=== PATIENT | female | born 1940 | race Caucasian/White ===

== ENCOUNTER 2023-03-24 12:46 | Day surgery (SDC) | payer MEDICARE ==
[2023-03-24] MEDS ORDERED: Depo-Medrol 40 MG/ML IM ONE (12:47)
[2023-03-24] MEDS ORDERED: BUPIVACAINE 0.5% VIAL IJ ONE (12:47)
[2023-03-24] MEDS ORDERED: Lactated Ringers 1,000 ML IV ONE ×2 (14:43→16:01)
[2023-03-24] MEDS ORDERED: DIPRIVAN 200 MG/20 ML IV ONE (15:04)
--- NOTE | 2023-03-24 16:33 | XRAY ---
14 seconds of fluoroscopy was used in surgery for a bilateral sacroiliac joint injection.
--- NOTE | 2023-03-24 16:37 | XRAY ---
Indication: Bilateral SI joint injection. Intraoperative fluoroscopy provided for 14 seconds. 4 digital spot image submitted for interpretation demonstrates posterior needle tip projecting over the expected left and right SI joint. Correlate with intraoperative findings/report.
== END 2023-03-24 15:30 | disposition home or self-care (01) ==
LOC: SDC-PAIN 12:46
PROVIDERS: ATTEND Psychiatry & Neurology Pain Medicine
DX: M46.1 Sacroiliitis, not elsewhere classified (principal); Z79.899 Other long term (current) drug therapy
CPT/HCPCS: 01992; 27096; 72202; 77002; 99100; G0260; J1030; J2704

== ENCOUNTER 2023-05-19 07:55 | Day surgery (SDC) | payer MEDICARE ==
[2023-05-19] MEDS ORDERED: BUPIVACAINE 0.5% VIAL IJ ONE (07:56)
[2023-05-19] MEDS ORDERED: Depo-Medrol 40 MG/ML IM ONE (07:56)
[2023-05-19] MEDS ORDERED: DIPRIVAN 200 MG/20 ML IV ONE (08:44)
[2023-05-19] MEDS ORDERED: Lactated Ringers 1,000 ML IV ONE (09:20)
--- NOTE | 2023-05-19 12:02 | XRAY ---
Indication: Bilateral L4-S1 MBB. Intraoperative fluoroscopy provided for 9 seconds. Single digital spot image submitted for interpretation demonstrates posterior needle tips projecting over the expected left and right L4-S1 nerve roots. Correlate with intraoperative findings/report.
--- NOTE | 2023-05-19 12:10 | XRAY ---
9 seconds of fluoroscopy was used in surgery for a bilateral L4-S1 MBB.
== END 2023-05-19 09:14 | disposition home or self-care (01) ==
LOC: SDC-PAIN 07:55
PROVIDERS: ATTEND Psychiatry & Neurology Pain Medicine
DX: M47.816 Spondylosis without myelopathy or radiculopathy, lumbar region (principal); Z79.899 Other long term (current) drug therapy
CPT/HCPCS: 64493; 64494; 72020; 77002; J1030; J2704